=== PATIENT | male | born 1945 | race Caucasian/White ===

== ENCOUNTER 2020-10-09 07:14 | Day surgery (SDC) | payer BC, MEDICARE ==
[2020-10-05 12:50] LABS: BASOPHILS % (AUTO) 0.4 % (0.0-5.0); HEMATOCRIT 43.2 % (42-54); LYMPHOCYTES % (AUTO) 29.4 % (21.0-51.0); MEAN CORPUSCULAR HGB CONC 33.3 g/dL (32.0-36.0); MEAN CORPUSCULAR VOLUME 92.9 fL (79-99); MONOCYTES % (AUTO) 8.2 % (3.0-13.0); NEUTROPHILS % (AUTO) 59.4 % (40.0-77.0); PLATELET COUNT (AUTO) 158 K/uL (130-400); RED BLOOD CELL COUNT(AUTO) 4.65 MIL/uL (4.50-6.20); RED CELL DISTRIBUTION WIDTH 12.6 % (11.0-15.5)
[2020-10-05 12:57] LABS: CREATININE 0.8 mg/dL (0.5-1.5); POTASSIUM 4.3 mmol/L (3.5-5.1)
[2020-10-05 13:05] LABS: APPEARANCE,URINE Clear (CLEAR); BILIRUBIN,URINE Negative (NEGATIVE); COLOR,URINE Yellow (YELLOW); GLUCOSE, URINE (UA) Negative (NEGATIVE); KETONES,URINE Negative (NEGATIVE); LEUKOCYTE ESTERASE ,URINE Negative (NEGATIVE); NITRATE,URINE Negative (NEGATIVE); OCCULT BLOOD,URINE Negative (NEGATIVE); PH,URINE 5.5 (5.0-8.0); PROTEIN,URINE Negative (NEGATIVE); UROBILINOGEN,URINE 0.2 mg/dL (0.2-1.0)
[2020-10-08 10:17] VITALS: BP 147/66
[~2020-10-09] VITALS: Ht 177.8 cm; Wt 99.3 kg
[2020-10-09] VITALS (17 sets, daily range): BP systolic 100–138; BP diastolic 60–79
[2020-10-09] MEDS: CEFTRIAXONE 1G VIAL IVP SCH ×2 (06:00→09:30)
[~2020-10-09 07:14] MED LIST: ATOR20TA65 PO; CELE200 PO; GENTAMICIN 80 MG/NS 100 ML PB 100 ML IV SCH; PHENYTOIN PO
[2020-10-09] MEDS ORDERED: LACTATED RINGERS 1000ML 1,000 ML IV ONE (08:31)
[2020-10-09] MEDS ORDERED: PROPOFOL 10 MG/ML 20ML VIAL IV ONE ×2 (09:23→09:55)
[2020-10-09] MEDS ORDERED: ONDANSETRON 4MG INJ ONE (09:23)
[2020-10-09] MEDS ORDERED: LIDOCAINE PF 100MG/5ML (2%) SYRINGE 5ML ONE (09:23)
[2020-10-09] MEDS ORDERED: SUCCINYLCHOLINE 200MG/10ML SYR ONE (09:23)
[2020-10-09] MEDS ORDERED: DEXAMETHASONE SOD PHOSPHATE 10MG/ML 1ML VIAL ONE (09:23)
[2020-10-09] MEDS ORDERED: GLYCOPYRROLATE 1 MG/5 ML SYRINGE ONE (09:23)
[2020-10-09] MEDS ORDERED: MIDAZOLAM HCL 1 MG/ML 2ML VIAL ONE (09:24)
[2020-10-09] MEDS ORDERED: NEOSTIGMINE 5MG/5ML SYR IV ONE (09:24)
[2020-10-09] MEDS ORDERED: FENTANYL CITRATE PF 50 MCG/1 ML 2ML VIAL ONE (09:24)
[2020-10-09] MEDS ORDERED: ROCURONIUM 10MG/1ML SYR 10 MG/ML ML ONE (09:24)
== END 2020-10-09 12:20 | disposition home or self-care (01) ==
LOC: DAH 07:14
PROVIDERS: ATTEND Urology
DX: C61 Malignant neoplasm of prostate (principal); R97.20 Elevated prostate specific antigen [PSA]; I10 Essential (primary) hypertension; Z20.822 Contact with and (suspected) exposure to COVID-19; E78.5 Hyperlipidemia, unspecified; Z79.899 Other long term (current) drug therapy
CPT/HCPCS: 36415; 55700; 71045; 76872; 80048; 81003; 85025; 87088; 87635; 93005; A4215 ×2; A4221; A4222; A4223; A4600; A4663; A6260; C9803; J0330; J0696; J1100; J1580; J2001; J2250; J2405; J2704 ×2; J2710; J3010; J3490; J7120